=== PATIENT | female | born 1960 | race Caucasian/White ===

== ENCOUNTER 2023-08-01 11:50 | Outpatient (REF) | payer BC, SELFPAY ==
--- NOTE | ~2023-08-01 | XR_ITS ---
EXAMINATION: XR PELVIS CLINICAL INFORMATION: Pain in unspecified hip COMPARISON: None available. TECHNIQUE: 2, AP views of the pelvis FINDINGS: Left total hip prosthesis is appropriately aligned. There are 2 acetabular screws present. No acute periprosthetic fracture seen. No suspicious michelle-hardware lucencies. Severe right hip arthritis, with marked axial joint space loss. No acute fracture or dislocation. Mild symphysis pubis degeneration. No diastasis of the SI joints. Bones appear osteopenic. Study assigned for dictation on 08/16/2023 XR/XR pelvis 1-2V IMPRESSION: Severe right hip arthritis. Osteopenia. Left total hip arthroplasty without radiographic evidence of periprosthetic fracture or hardware loosening.
== END 2023-08-01 11:51 | disposition home or self-care (01) ==
LOC: HO.HOSX 11:50
PROVIDERS: Visit Provider Orthopaedic Surgery
DX: M25.559 Pain in unspecified hip (principal)
CPT/HCPCS: 72170

== ENCOUNTER 2023-08-01 12:59 | Outpatient (AMB) | payer MEDICARE, SELFPAY ==
--- NOTE | 2023-08-01 13:11 | A.OFFVIS_ITS ---
Vital Signs 08/01/23 13:21 Height 5 ft 6 in Weight 115 lb BMI 18.6 Intake Visit Reasons: N/P Bilat hip pain Hx of LT THR in 2000 in [facility] Intake Note: Dania is a 63 year old female who presents today as a new patient for bilateral hip pain. Hx of LT ASHLEY in 2000 in [facility] at [facility] by Dr Andres Maldonado. She expresses the doctor who did her left ASHLEY used a ceramic ball on titanium hip. Patient reports she is doing well and occasionally has pain that comes and goes due to an athletic injury 28 years ago. She was in an exercise class, on her bare feet on cement ground, where she was instructed to jump up and down as high as she can. She expresses she is losing mobility and flexibility, but she does remain active. She occasionally has sharp pain on her left hip starting in her groin area and radiating to her thigh when she has to catch her step during ambulation. She does yoga daily and is unable to be as deep in it as she wishes due to her hips. She enjoys hiking but is very limited. Allergies No Known Allergies Allergy (Verified 08/01/23 13:22) HPI HPI N/P Bilat hip pain Hx of LT THR in 2000 in [facility]: Details: Dania is a 63 year old female who presents today as a new patient for bilateral hip pain. Hx of LT ASHLEY in 2000 in [facility] at [facility] by Dr Andres Maldonado. She expresses the doctor who did her left ASHLEY used a ceramic ball on titanium hip. Patient reports she is doing well and occasionally has pain that comes and goes due to an athletic injury 28 years ago. She was in an exercise class, on her bare feet on cement ground, where she was instructed to jump up and down as high as she can. She expresses she is losing mobility and flexibility, but she does remain active. She occasionally has sharp pain on her left hip starting in her groin area and radiating to her thigh when she has to catch her step during ambulation. She does yoga daily and is unable to be as deep in it as she wishes due to her hips. She enjoys hiking but is very limited. [facility] Surgical History (Updated 08/03/23 @ 07:39 by Ethan Walker MD) History of left hip replacement Social History (Updated 08/01/23 @ 13:23 by ANTOINETTE Hargrove) Alcohol intake: never Patient Tobacco Use Status: Never used Tobacco Current occupational status: employed Physical Exam Vital Signs: BMI result Body Mass Index 18.6 Const General: cooperative, healthy appearing, no acute distress, well developed and alert HEENT Head: Yes normal to inspection, Yes normocephalic and Yes atraumatic Mouth: moist mucous membranes Eyes General: appearance normal, both eyes and all related structures EOM: EOMs intact bilaterally Chest Other: no audible wheezing. Resp Other: No audible wheezing Effort & Inspection: normal respiratory effort Back/Spine/Pelvis Cervical Spine: normal cervical lordosis Skin General skin exam: no rashes or lesions noted Neuro General: no focal motor deficits Extrem Other: mild pain with FADIR on the right. Otherwise benign exam Psych Appearance: grossly normal and well kempt Mental Status: mental status grossly normal Speech and movement: Normal speech and movement present Affect: normal affect Attitude: cooperative Results Reviewed Results Reviewed: I personally reviewed relevant radiographs. Left ASHLEY in expected post operative position with no hardware complications or evidence of loosening Right coxa profunda with l;oss of joint space c/w moderate to severe OA Assessment & Plan Assessment & Plan (1) History of left hip replacement: Code(s): Z96.642 - Presence of left artificial hip joint Category: Surgical Plan: No complaints or issues with the left. (2) Arthritis of right hip: Code(s): M16.11 - Unilateral primary osteoarthritis, right hip Category: Medical Plan: Occasional pain in the right but she is active. I reviewed her radiographs and discussed hip protective exercises and strengthening. She can return to see me as needed. Orders: Orders XR pelvis 1-2V 08/01/23 M25.559 - Pain in unspecified hip Coding Level of Care Code New Pt Level 4 (95114) Diagnoses History of left hip replacement Z96.642 Arthritis of right hip M16.11
[2023-08-01 13:21] VITALS: BMI 18.6
== END 2023-08-01 14:25 | disposition home or self-care (01) ==
PROVIDERS: PCP Family Medicine; Visit Provider Orthopaedic Surgery
DX: M16.11 Unilateral primary osteoarthritis, right hip (principal); Z96.642 Presence of left artificial hip joint
CPT/HCPCS: 99204

== ENCOUNTER 2024-08-23 14:21 | Outpatient (AMB) | payer BC, SELFPAY ==
--- OUTSIDE RECORDS SUMMARY | 2023-03-23 04:07 | XMS_ITS | Continuity of Care Document ---
Author Organization [facility] Address [address] [place] [address] Phone Care Team Providers Care Sports Medicine Physician Name Role Phone Andres Maldonado MD Unavailable Unavailable Allergies, Adverse Reactions, Alerts Substance Reaction Status Criticality No Known Allergies Active No Inform ation Medications Medication Instructions Dosage Effective Dates (start - stop) Status Comments ESTRADIOL (TWICE WEEKLY) (unknown strength) apply 1 patch by transdermal route 2 times every week cyclically, 3 weeks on and 1 week off Not Available - Active Procedures Procedure Date Current Medications Documented By Provid er PT Re-Eval Current Medications Documented By Provid er PT Re-Eval THERAPEUTIC EXERCISES Current Medications Documented By Provid er THERAPEUTIC EXERCISES Current Medications Documented By Provid er First Steps PT Moderate Complexity THERAPEUTIC EXERCISES Lace Up Ankle With Stays Small X-RAY Ankle 3 Views Min Intermediate Established Patient Visit N X-RAY Knee 4 Or More Views Hip Unilateral With Pelvis 2-3 View Intermediate Established Patient Visit J Hip Unilateral With Pelvis 2-3 View Hip Unilateral With Pelvis 2-3 View Intermediate Established Patient Visit M X-RAY Finger 2 Or More Views Follow Up Care X-RAY Finger 2 Or More Views Follow Up Care X-RAY Finger 2 Or More Views Follow Up Care X-RAY Finger 2 Or More Views Fx Radial Head Cl. W/O Manipulation Fx Phalangeal Shaft Cl. With Manipulatio n Intermediate New Patient Visit X-RAY Finger 2 Or More Views Advance Directives Directive Yes / No Effective Date File Name No Information Encounters Encounter Description Practice Location Reason(s) For Visit Diagnoses Date Provider Providers Copied on Encounter [facility], [address] [place] [address], [place], [id number], [place] tel:[phone] [place] [address] No Information 4 Erica Campos. [address] [place] [address], [id number] , [place]. tel:[phone] [facility], [address] [place] [address], [place], [id number], [place] tel:[phone] [place] [address] [facility] [place] Posterior tibial tendinitis, left leg 2 [facility]PT Reina. [address] [place] [address], [id number] . tel:[phone] Referring Provider: Jonathon Bejarano, [address] [place] [address], [place], [address] . tel:[phone] [facility], [address] [place] [address], [place], [id number], [place] tel:[phone] [place] [address] [facility] [place] Posterior tibial tendinitis, left leg 2 [facility] L[facility]. [address] [place] [address], [place], [id number] . tel:[phone] Referring Provider: Jonathon Bejarano, [address] [place] [address], [place], [address] . tel:[phone] [facility], [address] [place] [address], [id number], [place] tel:[phone] [place] [address] [facility] [place] Posterior tibial tendinitis, left leg 2 [facility] Reina. [address] [place] [address], [id number] . tel:[phone] Referring Provider: Jonathon Bejarano, [address] [place] [address], [id number] . tel:[phone] [facility], [address] [place] [address], [id number], [place] tel:[phone] [facility] Posterior tibial tendinitis of left lower extremity 2 [facility]. [address] [place] [address], [id number] . tel:[phone] Referring Provider: Jonathon Bejarano, [address] [place] [address], [id number] . tel:[phone] [facility], [address] [place] [address], [id number], [place] tel:[phone] [facility] Posterior tibial tendinitis of left lower extremity 2 Evangelist Pascal. [address] [place] [address], [id number] , [place]. tel:[phone] Referring Provider: Jonathon Bejarano, [address] [place] [address], [id number] . tel:[phone] Intermediate Established Patient Visit [facility], [address] [place] [address], [id number], [place] tel:[phone] [place] [address] Ct left ankle Pain (chief complaint) Acute left ankle painBody mass index (BMI) 19 or less, adultPosterior tibial tendinitis of left lower extremity 2 Evangelist Pascal. [address] [place] [address], [id number] , [place]. tel:[phone] Referring Provider: Brodie Das, [address] [facility], [place], [address]. tel:[phone] Intermediate Established Patient Visit [facility], [address] [place] [address], [id number], [place] tel:[phone] [facility] [place] left hip Follow Up (chief complaint) left knee Pain (chief complaint) History of left hip replacementAcut e pain of left knee 1 Erica Andres. [address] [place] [address], [id number] , [place]. tel: [phone] Referring Provider: [address], [place], [address]. tel:[phone] Intermediate Established Patient Visit [facility] [address], [id number], [place] tel:[phone] [place] [address] [place] hip pain on the right greater than the left (chief complaint) hip (chief complaint) Presence of left artificial hip jointRight hip painPrimary osteoarthritis of right hip 6 Erica Campos. [address] [place], [place], [id number] , [place]. tel: [phone] Referring Provider: Griffin Garza , [place], [address]. tel:[phone] [facility], [address] [place] [address], [id number], [place] tel:[phone] [place] [address] Ct right small finger fracture (chief complaint) No Information 3 Jim Soliman. [address] [place] [address], [id number] , [place]. tel: [phone] Referring Provider: [address], [place], [address]. tel:[phone] [facility], [address] [place] [address], [id number], [place] tel:[phone] [place] [address] Ct right 5th finger fx (chief complaint) No Information 3 Jim Soliman. [address] [place] [address], [id number] , [place]. tel:[phone] Referring Provider: [address], [place], [address]. tel:[phone] [facility], [address] [place] [address], [id number], [place] tel:[phone] [place] [address] Ct right 5th finger fx f/u (chief complaint) Aftercare for healing traumatic fracture of other bone Sep-3 0 3 Jim Soliman. [address] [place] [address], [id number] , . tel: [phone] Referring Provider: Griffin Garza , [place], [address]. tel:[phone] [facility], [address] [place] [address], [id number], tel:[phone] [place] [address] Ct right forearm fracture (chief complaint) Finger fractureFractur e of head of radius Sep-2 3 Jim Soliman. [address] [place] [address], [id number] , . tel: [phone] Referring Provider: Griffin Garza [place] , [place], [address]. tel:[phone] Intermediate New Patient Visit [facility], [address] [place] [address], [id number], tel:[phone] [place] [address] Ct Left Middle Finger Injury (chief complaint) No Information 2 Nella carlos. [address] [place] [address], [id number] , . tel: [phone] Referring Provider: Griffin Garza [facility], [place], [address]. tel:[phone] Family History Family Member Type Diagnosis Age At Onset Family h/o Problem (finding) Cardiovascular Disease Family h/o Problem (finding) Arthritis Family h/o Problem (finding) Cardiovascular Disease Payers Payer name Insurance type Covered republican ID Authorsylviaa lyndsay(s) [employer] Insurance O CI [id number] Social History Type Description Quantity Date Captured Comments Alcohol Use Details Unknown Caffeine Use Details Unknown Tobacco Use Status No Information Smoking Status No Information Sex Female Chief Complaint And Reason For Visit No Information Reason For Referral Reason For Referral No Information Plan Of Treatment Date Type Action Status Goal Prescribed Diet Education co mpleted Referral Ordered: X-RAY Ankle 3 Views Min LT ankle ordered Referral Ordered: X-RAY Knee 4 Or More Views LT ordered Referral Ordered: Hip Unilateral With Pelvis 2-3 View LT ordered Referral Ordered: Hip Unilateral With Pelvis 2-3 View RT ordered Future Order: Radiology Order X- RAY Finger 2 Or More Views ([id number]), Appointment on: , Sent on: Sent Future Order: Radiology Order X- RAY Finger 2 Or More Views ([id number]), Appointment on: , Sent on: Sent Future Order: Radiology Order X- RAY Finger 2 Or More Views ([id number]), Appointment on: , Sent on: Sent Future Order: Radiology Order X- RAY Finger 2 Or More Views ([id number]), Appointment on: , Sent on: Sent History Of Present Illness Encounter Date Complaint History Of Prese nt Illness left ankle Pain The symptoms are reported as being moderate. The symptoms occur daily. Aggravating factors include walking and daily activities. The client states the symptoms are acute. pt complaining of L ankle pain . left knee Pain STATES SHE HAD T WISTED HER LEFT KNEE WHILE BIKING A MONTH AGO - SHE HAD SCHEDULED THIS APPT RIGHT AFTER THE INJURY, HOWEVER THE PAIN HAS SUBSIDED - WANTED TO KEEP APPT TO HAVE HIP CHECKED WELL KNEE left hip Follow Up HX LEFT HIP R EPLACEMENT 03/2002 - DOING VERY WELL AND HAS NO COMPLAINTS TODAY hip hip pain on the righ t greater than the left Ms Parra is a 55 year old female who complains of hip pain on the right greater than the left. She presents with pain on the right greater than the left. She states that the symptoms have been gradual. The symptoms occur intermittently. The problem is stable. Currently the patient states that the symptoms are mild-moderate. The pain is described as piercing. The symptoms occur intermittently. She rates her worst pain as 6/10. The pain radiates from the groin on the right side on the right side then to the below the knee on the right side. The symptoms are aggravated by exercise, stretching, running and sports. Dania states that the symptoms are relieved by no specific activity. Patient has had LT ASHLEY 2002. Functional Status Date Functional Assessmen t No Information Instructions Date Instruction Additional Infor emily Presents for evaluat ion of left ankle pain after rolling her ankle approximate 2 months ago at her daughter's wedding. X-rays today show no acute findings, she has tenderness palpation along the navicular bone along her posterior tib tendon. Will place in an ASO brace, RICE, anti-inflammatories. We will complete course of physical therapy 2-3 times a week for the next 4 weeks. We will follow-up after her physical therapy if still having any issues, otherwise she can follow-up as needed Related to Acute left ankle pain Prescribed Diet Education Relate d to Body mass index [BMI] 19.9 or less, adult Not Applicable Related to Body mass index [BMI] 19.9 or less, adult Patient is doing ext remely well from the point of view have her hip. She has no where in the hip that is now 18 years old. She does have some moderate degenerative changes in the opposite hip which she could follow-up as needed. Of note she did have an injection in the past which did not help and she would not want to proceed with another one if she does become more symptomatic.Regarding her knee she may have had a mild sprain but her exam is benign today and would recommend just observation.At this point follow-up will be every 5 years for her replaced hip or as needed Related to History of left hip replacement RICE begin gripping exercise begin ROM as tolerated Assessments Type Assessment Date No Information Patient Care Teams Name Effective Dates (start - stop) Status Members No Information
--- OUTSIDE RECORDS SUMMARY | 2024-08-18 23:59 | XMS_ITS | Continuity of Care Document ---
Author Organization [facility] Address [address] [place] [address]- Care Team Providers Care Vendor Manager Name Role Phone Laura Zepeda MD Primary Care Physician Encounter [facility] Date(s): 07/18/24 - 08/18/[address] [address] Attending Physician: Calixto Ly MD Admitting Physician: Calixto Ly MD Referring Physician: Calixto Ly MD Encounter Type: Pre-Outpt Allergies, Adverse Reactions, Alerts No Known Medication Allergies Medications Estradiol patient is taking 2200 mg daily, 0 Refills, Maintenance, 07/06/24 2:44:00 PM EDT, Partial fill upon patient request if the prescription is for a schedule II opioid drug. Start Date: 07/06/24 Status: Ordered Repeat number: 1 Vitamin B12 0 Refills, Maintenance, 07/06/24 2:46:00 PM EDT, Partial fill upon patient request if the prescription is for a schedule II opioid drug. Start Date: 07/06/24 Status: Ordered Repeat number: 1 Vitamin D3 2000 intl units oral capsule 1 capsule = 50 mcg, By Mouth, Daily, patient takes 2200 daily, 0 Refills, Maintenance, 07/06/24 2:46:00 PM EDT, Partial fill upon patient request if the prescription is for a schedule II opioid drug. Start Date: 07/06/24 Status: Ordered Repeat number: 1 Problem List Condition Confirmation Course Effective Dates Status Health St [facility] Informant Underweight Confirmed Active Patient Care team information Care Team Personnel Name: Laura Zepeda MD Position: S Physician - Primary Care Member Role: PCP Address: [address] [place], [place] [address], [place] [address]- [place] Telecom: Name: Suzanne Castle RN Position: [facility] RN Member Role: Primary Care Nurse Name: Deborah JOHNSON, Barbara Henry Position: S RN Member Role: Primary Care Nurse Care Team Related Persons Name: JODY NUÑEZ Insurance Providers Guarantor name: NA Health Plan Information #: 1 Payer: [employer] Payer Identifier: BC Member Number: [id number] Group Number: BC Subscriber Identifier: [id number] Relationship to Subscriber: self Coverage Type: Medicare PPO Coverage Verification Date: NA Telecom: NA Address: NA
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
== END 2024-08-23 15:23 | disposition home or self-care (01) ==
LOC: HO.HSM 14:21
PROVIDERS: PCP Family Medicine; Visit Provider Psychiatry & Neurology Neurology
DX: G40.909 Epilepsy, unspecified, not intractable, without status epilepticus (principal)
CPT/HCPCS: 99213